=== PATIENT | female | born 1985 | race African-American/Black ===

== ENCOUNTER 2017-10-19 15:29 | Emergency (ER) | payer MEDICAID ==
[~2017-10-19] VITALS: Ht 177.8 cm; Wt 168.7 kg
[2017-10-19] MEDS ORDERED: ABILIFY10 MG ORAL (15:45)
[2017-10-19 15:47] VITALS: BP 113/78
[2017-10-19] MEDS ORDERED: CEPHALEXIN500 MG ORAL (16:05)
[2017-10-19] MEDS ORDERED: ANUSOL-HC25 MG RECTAL (16:05)
[2017-10-19] MEDS ORDERED: COLACE100 MG ORAL (16:05)
[2017-10-19] MEDS ORDERED: BACITRACIN-P28.35 GM TP (16:05)
--- NOTE | 2017-10-19 16:07 | Emergency Room Report ---
History of Present Illness General Chief Complaint: General Complaint Source: Patient Present Illness HPI 32-year-old female patient presents to ER complaining of hemorrhoids for the past 3 days. Reports that she noticed blood on the toilet paper and stool today. Denies syncope, fainting, dizziness, chest pain, shortness of breath. Denies diarrhea. Reports she diagnosed herself hemorrhoids, states that she could "feel it". Denies history of hemorrhoids. denies vomiting. Denies abdominal pain or back pain. Denies dysuria, hematuria. DEnies fever, weight loss, night sweats. patient reports history of bipolar disorder, states that she just moved to town and is requesting refill of her medication, states that she has 13 days left of medication. Denies thoughts of hurting herself or others at this time. Allergies: Coded Allergies: No Known Allergies (Unverified , 10/19/17) Patient History Past Medical History: see triage record Last Menstrual Period: Reviewed Nursing Documentation: PMH: Agreed; PSxH: Agreed Nursing Documentation-PMH History Of Psychiatric Problem: Yes - BIPOLAR Review of Systems All Other Systems: negative except mentioned in HPI Physical Exam Vital Signs Date Time Temp Pulse Resp B/P (MAP) Pulse Ox O2 Delivery O2 Flow Rate FiO2 10/19/17 15:39 98.2 79 16 113/78 96 Room Air 98.2 Sp02 EP Interpretation: reviewed, normal General Appearance: well appearing, no apparent distress, alert, GCS 15, non- toxic Head: normocephalic, atraumatic Eyes: bilateral eye normal inspection, bilateral eye PERRL ENT: hearing grossly normal, normal pharynx, no angioedema, normal voice, uvula midline, moist mucus membranes Neck: full range of motion Respiratory: lungs clear, normal breath sounds, no rhonchi, no respiratory distress, no accessory muscle use, no wheezing, speaking full sentences Cardiovascular #1: regular rate, rhythm, no edema Rectal: hemorrhoids - no TTP, no erythema, no signs of strangulation or thrombosis, no open lesions or bleeding, other - no anal fissure, no prolapse Genitourinary: no CVA tenderness Musculoskeletal: back normal, digits/nails normal, gait/station normal, normal range of motion, non-tender Neurologic: alert, oriented x3, responsive, motor strength/tone normal, sensory intact Psychiatric: mood/affect normal Skin: other - upper right medial thigh 2 cm distal to rectum 1 cm draining blood abscess, tender to palpation, no fluctuance or induration, no pus with expression, no surrounding erythema or edema Medical Decision Making PA Attestation Dr. Gifford is my supervising Physician whom patient management has been discussed with. Diagnostic Impression: Primary Impression: Abscess Additional Impression: Hemorrhoid ER Course Pt. presents to the ED c/o hemorrhoids. Ddx considered but are not limited to rash, cellulitis, abscess, sebaceous cyst , carbuncle, folliculitis. Ddx considered but are not limited to constipation, anal tag, anal fissure, hemorrhoids. Does not require imaging at this time. Vital signs: are WNL, pt. is afebrile ED INTERVENTIONS: On physical exam patient has nontender hemorrhoid visible, no bleeding noted. 2 cm distal to hemorrhoid on right inner thigh, area of skin irritation with bleeding noted. Likely friction rub of skin leading to possible skin abscess formation. Area TTP, bleeding present, not able to express any pus, will treat as small abscess, no induration or fluctuance, does not require I&D at this time , already draining. Will provide antibiotics at discharge home. Instructed patient keep area clean and dry, follow with PCP or return to ER for wound check. Provided with patient instructions. No fever, weight loss, night sweats, patient does not require imaging at this time. Followup outpatient. Hemorrhoid has no signs of thrombosis or strangulation, no palpable clot, no tenderness to palpation likely external. No signs of anemia, no pallor, cap refill <2seconds, patient reports no light headedness. Does not require labs at this time Will treat for hemorrhoids with Anusol, followup with primary care and discuss referral to [facility]/ GI specialist as needed. Provide Colace to help with passing stool. Instructed patient to drink plenty of fluids. Instructed patient no to strain. instructed patient to follow-up with primary care provider and get referral to mental health professional to discuss refill of bipolar medication. Patient with contact information for mental health urgent care. Informed patient that if she is not able to establish care or meet with mental professional prior to bipolar medication running out, she may return to ER and we can discuss providing her with her medication at that time. Informed patient ER doesn't normally provide medication refills. In no acute complaints, denies suicidal or homicidal ideation, no focal neural deficits, ambulating with steady gait, speaking normally, okay for discharge to home. DISCHARGE: Rx provided for Keflex Rx provided for Anusol, 2 supp/day BID Rx provided for Colace -Rx provided for Bacitracin At this time pt. is stable for d/c to home. Patient is resting comfortably, in no acute distress, nontoxic appearing. Will provide printed patient care instructions and any necessary prescriptions. Care plan and follow up instructions have been discussed with the patient prior to discharge. Patient instructed to follow-up with primary care provider in 2 - 3 days for wound recheck. Patient questions asked and answered. Patient reports understanding and agreement to treatment plan. ER precautions given. Patient instructed to return to ER immediately for any new or worsening of symptoms including but not limited to fever, worsening of pain symptoms, worsening of erythema, red streaking. - Please note that this Emergency Department Report was dictated using [email or web address] technology software, occasionally this can lead to erroneous entry secondary to interpretation by the dictation equipment. Last Vital Signs Date Time Temp Pulse Resp B/P (MAP) Pulse Ox O2 Delivery O2 Flow Rate FiO2 10/19/17 15:47 98.2 16 113/78 96 Room Air 98.2 10/19/17 15:39 79 Disposition: HOME, SELF-CARE Condition: Stable Scripts Bacitracin/Polymyxin B Sulfate (BACITRACIN-POLYMYXIN OINTMENT) 28.35 Gm Oint...g. 1 APPLIC TP BID for 7 Days, #28 GM Prov: Sacha Penn.ALuis A 10/19/17 Cephalexin* (KEFLEX*) 500 Mg Capsule 500 MG ORAL EVERY 12 HOURS, #14 CAP 0 Refills Prov: Sacha Penn P.A. 10/19/17 Docusate Sodium* (COLACE*) 100 Mg Capsule 100 MG ORAL TWICE A DAY for 5 Days, CAP Prov: Sacha Penn.A. 10/19/17 Hydrocortisone Acetate* (ANUSOL-HC*) 25 Mg Supp.rect 1 SUPP RECTAL TWICE A DAY for 10 Days, #20 SUPP Prov: Sacha Penn.A. 10/19/17 Patient Instructions: Abscess, Kybm-th-Clen, Hemorrhoids, [id number] Additional Instructions: Followup with primary care provider in 2-3 days for wound check. Follow-up with PCP and request referral to [facility] discuss further treatment of hemorrhoids. Keep area clean and dry. Do not strain with defecation. Drink plenty of fluids. Followup with mental health urgent care for medication refills. Attempt to establish care with mental health professional. Take medications as directed. Patient questions asked and answered. ER precautions given, patient instructed to return to ER immediately for any new or worsening of symptoms. Sacha Penn Oct 19, 2017 16:07
[2017-10-19 16:12] VITALS: BP 113/78
== END 2017-10-19 16:30 | disposition home or self-care (01) ==
LOC: EMR 16:17
DX: L02.415 Cutaneous abscess of right lower limb (principal); K64.9 Unspecified hemorrhoids; F31.9 Bipolar disorder, unspecified
CPT/HCPCS: 99284